=== PATIENT | female | born 1950 | race Caucasian/White ===

== ENCOUNTER 2020-04-07 16:11 | Emergency (ER) | payer OTHER, MEDICARE ==
[2020-04-07] MEDS ORDERED: NORCO 5-325 TA1 EACH PO (19:30)
[2020-04-07] MEDS ORDERED: CEPHALEXIN500 MG PO (19:30)
== END 2020-04-07 19:47 | disposition home or self-care (01) ==
LOC: FER 16:11
DX: S61.451A Open bite of right hand, initial encounter (principal); S66.921A Laceration of unspecified muscle, fascia and tendon at wrist and hand level, right hand, initial encounter; W54.0XXA Bitten by dog, initial encounter; Z88.0 Allergy status to penicillin
CPT/HCPCS: 73130; 96372; J0690